=== PATIENT | female | born 1965 | race Hispanic/Latino ===

== ENCOUNTER 2018-10-13 01:29 | Inpatient (IN) | payer MEDICARE ==
[2018-10-13] VITALS (22 sets, daily range): BP systolic 127–190; BP diastolic 37–106
[~2018-10-13] VITALS: Ht 162.6 cm; Wt 130.6 kg
[~2018-10-13 01:29] MED LIST: AEC81 PO; ALBU8.5H8 IH; AMLO10TA7 PO; AZIT500T PO; BRIM5DRO OP; CETI10TA57 PO; FOLI1TAB15 PO; FURO20TA6 PO; GABA-531 PO; HYDR-4154 PO; LABE200T5 PO; LINA5TAB PO; LUBI24CA2 PO; MONT10TA24 PO; PRED20TA3 PO; SENN-183 PO; SIMV20TA6 PO; THEO100C PO; TRAV2.5D OD
[2018-10-13] MEDS ORDERED: METHYLPREDNISOLONE SOD SUCC 125MG/2ML VIAL ONE (02:41)
[2018-10-13] MEDS ORDERED: LEVOFLOXACIN 750 MG/D5W 150 ML 150 ML ONE (02:42)
[2018-10-13] MEDS ORDERED: IPRATROPIUM/ALBUTEROL SULFATE 3 ML SOLUTION IH ONE (03:20)
[2018-10-13] MEDS ORDERED: ASPIRIN 325 MG TABLET ONE (03:24)
[2018-10-13] MEDS ORDERED: NITROGLYCERIN 0.4 MG SL TAB SL ONE (03:25)
[2018-10-13 03:30] LABS: BASOPHILS % (AUTO) 0.5 % (0.0-5.0); EOSINOPHILS % (AUTO) 0.5 % (0.0-8.0); HEMATOCRIT 28.3 % (36-48); MEAN CORPUSCULAR HEMOGLOBIN 28.6 pg (27.0-33.0); MEAN CORPUSCULAR HGB CONC 31.8 g/dL (32.0-36.0); MEAN CORPUSCULAR VOLUME 89.9 fL (79-99); MONOCYTES % (AUTO) 1.9 % (3.0-13.0); NEUTROPHILS % (AUTO) 92.1 % (40.0-77.0); NUCLEATED RED BLOOD CELLS 0.1 % (0.0-0.19); PLATELET COUNT (AUTO) 146 K/uL (130-400); RED BLOOD CELL COUNT(AUTO) 3.15 MIL/uL (4.00-5.50); RED CELL DISTRIBUTION WIDTH 15.4 % (11.0-15.5); WHITE BLOOD COUNT (AUTO) 9.2 K/uL (4.8-10.8)
[2018-10-13 03:39] LABS: INR 0.92 (0.85-1.15); PARTIAL THROMBOPLASTIN TIME 32.4 SEC (26.3-35.5); PROTHROMBIN TIME 9.7 SEC (9.6-11.6)
[2018-10-13 03:48] LABS: ALBUMIN 2.9 g/dL (3.5-5.0); BILIRUBIN,TOTAL 0.3 mg/dL (0.2-1.0); CREATININE 3.8 mg/dL (0.5-1.5); TOTAL PROTEIN, SERUM 6.8 g/dL (6.0-8.3)
[2018-10-13 03:49] LABS: POTASSIUM 8.1 mmol/L (3.5-5.1)
[2018-10-13 03:54] LABS: B-TYPE NATRIURETIC PEPTIDE 262 pg/mL (0-100)
[2018-10-13 04:33] LABS: CREATININE 3.8 mg/dL (0.5-1.5)
[2018-10-13 04:38] LABS: POTASSIUM 8.5 mmol/L (3.5-5.1)
[2018-10-13] MEDS ORDERED: CALCIUM GLUCONATE 1 GM/10 ML VIAL IV ONE (04:46)
[2018-10-13] MEDS ORDERED: FUROSEMIDE 10 MG/ML 2ML VIAL ONE ×2 (04:46→10:24)
[2018-10-13] MEDS ORDERED: INSULIN HUMULIN R 100 UNIT/ML 3ML ONE ×2 (04:48→08:41)
[2018-10-13] MEDS ORDERED: SODIUM CHLORIDE 0.9% 100 ML IV ONE (04:49)
[2018-10-13] MEDS ORDERED: ALBUTEROL SULFATE 0.083% 2.5 MG/3 ML INH IH ONE ×2 (04:58→08:58)
[2018-10-13] MEDS ORDERED: MORPHINE SULFATE 4 MG/1ML SYG IV PRN (05:15)
[2018-10-13] MEDS ORDERED: VANCOMYCIN 1GM+NS 250ML 250 ML IV ONE ×2 (05:15→07:04)
[2018-10-13] MEDS ORDERED: BUMETANIDE 0.25 MG/ML 10 ML VIAL IV SCH (05:15)
[2018-10-13] MEDS ORDERED: HYDRALAZINE HCL 20 MG/ML VIAL IV PRN (05:15)
[2018-10-13 05:17] LABS: ABG BASE EXCESS -8.7 mmol/L (-2.0-3.0); ABG HCO3 17.5 mmol/L (21.0-28.0); ABG OXYGEN SATURATION 95.8 % (95.0-99.0); ABG PCO2 39 mmHg (32-45)
[2018-10-13] MEDS ORDERED: PHARMACY COMMUNICATION MISC SCH (05:45)
[2018-10-13] MEDS ORDERED: VANCOMYCIN PROTOCOL PER PHARMACY IV SCH (05:45)
[2018-10-13] MEDS: AZITHROMYCIN 500MG+NS 250ML 250 ML IV SCH (07:00)
[2018-10-13 07:14] LABS: CHOLESTEROL 170 mg/dL (<200); HDL CHOLESTEROL 51 mg/dL (35-85); LDL DIRECT 96 mg/dL (0-99); TRIGLYCERIDES 104 mg/dL (30-200)
[2018-10-13] MEDS: CEFTRIAXONE SODIUM 1 GM IVP SCH (07:15)
[2018-10-13] MEDS ORDERED: COMPOUND IV MISC 1 EACH IVSOLN MISC PRN (07:15)
[2018-10-13] MEDS ORDERED: SODIUM CHLORIDE 0.9% IV SCH (07:15)
[2018-10-13] MEDS ORDERED: BUMETANIDE IV SCH (07:15)
[2018-10-13] MEDS: INSULIN HUMULIN R 100 UNIT/ML 3ML SQ SCH ×4 (07:30→21:00)
[2018-10-13] MEDS ORDERED: SODIUM POLYSTYRENE SULFONATE 15 GM/60 ML ML ONE (07:33)
[2018-10-13] MEDS ORDERED: SODIUM BICARB 50MEQ 50ML VIAL ONE (08:40)
[2018-10-13] MEDS: METOPROLOL TARTRATE 25 MG TAB PO SCH ×2 (09:00→22:23)
[2018-10-13] MEDS: BENZONATATE 100 MG CAPSULE PO SCH ×3 (09:00→22:22)
--- NOTE | 2018-10-13 09:31 | NUR ---
Pt requested to be taken off bipap. Denies sob at this time. No resp distress noted. Placed on 2L NC. HR 92 RR 22 SpO2 96% on 2L NC. Lavonne POLK notified.
[2018-10-13] MEDS ORDERED: SODIUM CHLORIDE 3% FOR INHALATION 4 ML/AMP VIAL.NEB IH ONE ×3 (09:38→18:27)
[2018-10-13 10:27] LABS: CREATINE KINASE, TOTAL 280 U/L (21-232); MYOGLOBIN 251 ng/mL (10-92); TROPONIN I < 0.04 ng/mL (0.00-0.06)
[2018-10-13] MEDS ORDERED: FUROSEMIDE 10 MG/ML 2ML VIAL IV SCH (10:30)
[2018-10-13] MEDS ORDERED: CALCIUM GLUCONATE 1 GM/10 ML VIAL IV SCH (11:15)
[2018-10-13] MEDS ORDERED: SODIUM POLYSTYRENE SULFONATE 15 GM/60 ML ML PO PRN (11:15)
[2018-10-13] MEDS ORDERED: SODIUM BICARB 8.4% 50ML SYRING 200 MEQ in DEXTROSE 10%-WATER 1,000 ML IV SCH (11:15)
[2018-10-13] MEDS ORDERED: METOLAZONE 2.5 MG TABLET PO SCH (11:30)
[2018-10-13] MEDS: ALBUTEROL SULFATE 0.083% 2.5 MG/3 ML INH IH SCH ×6 (11:51→22:00)
[2018-10-13] MEDS: CALCIUM GLUCONATE 1 GM in SODIUM CHLORIDE 0.9% 50 ML IV SCH ×2 (12:13→12:15)
[2018-10-13] MEDS: DEXTROSE 10%-WATER 1,000 ML IV SCH (12:13)
[2018-10-13] MEDS: FUROSEMIDE 10 MG/ML 4ML VIAL IV SCH ×2 (12:13→22:52)
[2018-10-13] MEDS: HEPARIN SODIUM 5000UNIT/ML 1ML VIAL SQ SCH ×2 (12:14→22:56)
[2018-10-13] MEDS ORDERED: CALCIUM GLUCONATE 1 GM in SODIUM CHLORIDE 0.9% 50 ML IV PRN (12:15)
[2018-10-13] MEDS: INSULIN REGULAR, HUMAN 3ML 100 UNIT in SODIUM CHLORIDE 0.9% 99 ML IV SCH ×4 (12:16→18:30)
[2018-10-13] MEDS ORDERED: ZOSYN 3.375GM+NS 50ML 50 ML IV SCH (13:00)
--- NOTE | 2018-10-13 16:00 | NUR ---
REPORT GIVEN TO SOUMYA POLK. INFORMED OF PENDING WOUND PICTURE AND HOME MEDICATIONS.
[2018-10-13 16:06] LABS: CREATINE KINASE, TOTAL 219 U/L (21-232); MYOGLOBIN 279 ng/mL (10-92); TROPONIN I < 0.04 ng/mL (0.00-0.06)
[2018-10-13 17:35] LABS: APPEARANCE,URINE Clear (CLEAR); BILIRUBIN,URINE Negative (NEGATIVE); COLOR,URINE Yellow (YELLOW); GLUCOSE, URINE (UA) 250 mg/dL (NEGATIVE); KETONES,URINE Negative (NEGATIVE); LEUKOCYTE ESTERASE ,URINE Trace (NEGATIVE); NITRATE,URINE Negative (NEGATIVE); OCCULT BLOOD,URINE Moderate (NEGATIVE); PROTEIN,URINE 300 mg/dL (NEGATIVE); UROBILINOGEN,URINE 0.2 mg/dL (0.2-1.0)
[2018-10-13 17:39] LABS: CREATININE,URINE RANDOM 33 mg/dL (30-135)
[2018-10-13 17:48] LABS: PROTEIN,URINE RANDOM 242.2 mg/dL (0-11.9)
[2018-10-13 17:50] LABS: BACTERIA,URINE Rare /HPF (None Seen); MUCUS,URINE Few LPF (None Seen); RBC,URINE 51-100 /HPF (0-1)
[2018-10-13 17:51] LABS: SQUAMOUS EPITHELIAL CELL,UR 0-2 /HPF (0-2)
[2018-10-13] MEDS ORDERED: FURO20TA4 PO (18:51)
[2018-10-13] MEDS ORDERED: DOCU100C33 PO (18:51)
[2018-10-13] MEDS ORDERED: OLME40TA18 PO (18:51)
[2018-10-13] MEDS ORDERED: LUBI24CA2 PO (18:51)
[2018-10-13] MEDS ORDERED: LINA5TAB PO (18:51)
[2018-10-13] MEDS ORDERED: DEXL60CA3 PO (18:51)
[2018-10-13] MEDS ORDERED: INSLAN SQ ×2 (18:51)
[2018-10-13] MEDS ORDERED: AMLO5TAB9 PO (18:51)
[2018-10-13] MEDS ORDERED: GABA-533 PO (18:51)
--- NOTE | 2018-10-13 20:00 | NUR ---
ASSESSMENT AWAKE. RESTING IN BED. REMAINS ON INSULIN DRIP. DENIES PAIN. ASSESSMENT COMPLETED SEE FLOW SHEET. ENCOURAGED TO CALL FOR WANTS OR NEEDS. Addendum: 10/13/18 at 2037 by ELIZABETH PAYAN RN RN Amended: Links added.
[2018-10-13] MEDS: LATANOPROST 2.5 ML DROPS OD SCH (21:00)
[2018-10-13] MEDS: SIMVASTATIN 20 MG TABLET PO SCH (22:24)
[2018-10-13] MEDS: HYDRALAZINE HCL 25 MG TABLET PO SCH (22:24)
[2018-10-13] MEDS: LABETALOL HCL 200 MG TABLET PO SCH (22:25)
[2018-10-13] MEDS: TIMOLOL OP SCH (22:26)
[2018-10-13] MEDS: BRIMONIDINE TARTRATE OP SCH (22:26)
[2018-10-14] VITALS (15 sets, daily range): BP systolic 103–162; BP diastolic 41–80
[2018-10-14] MEDS: ALBUTEROL SULFATE 0.083% 2.5 MG/3 ML INH IH SCH ×4 (00:49→06:31)
[2018-10-14 04:03] LABS: MEAN CORPUSCULAR HEMOGLOBIN 28.8 pg (27.0-33.0); MEAN CORPUSCULAR HGB CONC 32.8 g/dL (32.0-36.0); MEAN CORPUSCULAR VOLUME 87.8 fL (79-99); PLATELET COUNT (AUTO) 180 K/uL (130-400); RED BLOOD CELL COUNT(AUTO) 2.96 MIL/uL (4.00-5.50); RED CELL DISTRIBUTION WIDTH 15.3 % (11.0-15.5); WHITE BLOOD COUNT (AUTO) 7.7 K/uL (4.8-10.8)
[2018-10-14 04:08] LABS: HEMOGLOBIN A1C 8.6 % (4.0-6.0)
[2018-10-14 04:18] LABS: INR 0.99 (0.85-1.15); LYMPHOCYTES % (MANUAL) 9 % (22-44); MAN.DIFF COMMENT-IMPRESSION MANUAL DIFFERENTIAL; MONOCYTES % (MANUAL) 7 % (2-9); PARTIAL THROMBOPLASTIN TIME 29.6 SEC (26.3-35.5); PROTHROMBIN TIME 10.4 SEC (9.6-11.6); SEGMENTED NEUTROPHILS % 84 % (40-70)
[2018-10-14 04:19] LABS: % IRON SATURATION 18.8 % (22-44)
[2018-10-14 04:20] LABS: PLATELET MORPHOLOGY COMMENT ADEQUATE
[2018-10-14 04:23] LABS: ABG BASE EXCESS -1.9 mmol/L (-2.0-3.0); ABG HCO3 25.1 mmol/L (21.0-28.0); ABG PCO2 51 mmHg (32-45)
[2018-10-14 04:26] LABS: ALBUMIN 2.7 g/dL (3.5-5.0); BILIRUBIN,TOTAL 0.3 mg/dL (0.2-1.0); CREATININE 3.7 mg/dL (0.5-1.5); MAGNESIUM 1.7 mg/dL (1.80-2.40); PHOSPHORUS 5.6 mg/dL (2.5-4.9); POTASSIUM 4.7 mmol/L (3.5-5.1); THYROID STIMULATING HORMONE 0.67 uIU/mL (0.36-3.74); TOTAL PROTEIN, SERUM 6.2 g/dL (6.0-8.3)
[2018-10-14] MEDS: DEXTROSE 10%-WATER 1,000 ML IV SCH (04:55)
[2018-10-14] MEDS: INSULIN HUMULIN R 100 UNIT/ML 3ML SQ SCH ×4 (06:00→21:46)
[2018-10-14] MEDS: AZITHROMYCIN 500MG+NS 250ML 250 ML IV SCH (07:01)
[2018-10-14] MEDS: CEFTRIAXONE SODIUM 1 GM IVP SCH (07:01)
[2018-10-14] MEDS ORDERED: ALBUTEROL SULFATE 0.083% 2.5 MG/3 ML INH IH PRN (08:00)
[2018-10-14] MEDS: MONTELUKAST SODIUM 10 MG TAB PO SCH (08:32)
[2018-10-14] MEDS: THEOPHYLLINE ANHYDROUS 100 MG CAP.ER.24H PO SCH (08:32)
[2018-10-14] MEDS: METOPROLOL TARTRATE 25 MG TAB PO SCH (08:32)
[2018-10-14] MEDS: HYDRALAZINE HCL 25 MG TABLET PO SCH ×2 (08:33→20:48)
[2018-10-14] MEDS: SENNOSIDES 8.6 MG TABLET PO SCH (08:33)
[2018-10-14] MEDS: FOLIC ACID 1 MG TABLET PO SCH (08:33)
[2018-10-14] MEDS: BENZONATATE 100 MG CAPSULE PO SCH ×3 (08:33→20:42)
[2018-10-14] MEDS: LABETALOL HCL 200 MG TABLET PO SCH ×2 (08:34→20:42)
[2018-10-14] MEDS: ASPIRIN 81 MG EC TAB PO SCH (08:34)
[2018-10-14] MEDS: CETIRIZINE HCL 5 MG TABLET PO SCH (08:34)
[2018-10-14] MEDS: AMLODIPINE BESYLATE 5 MG TAB PO SCH (08:34)
[2018-10-14] MEDS: INSULIN GLARGINE 100 UNITS/ML 10 ML VIAL SQ SCH ×2 (08:38→21:47)
[2018-10-14] MEDS: TIMOLOL OP SCH ×2 (10:01→20:48)
[2018-10-14] MEDS: BRIMONIDINE TARTRATE OP SCH ×2 (10:01→20:48)
[2018-10-14] MEDS: FUROSEMIDE 10 MG/ML 4ML VIAL IV SCH ×2 (10:03→20:42)
[2018-10-14] MEDS: HEPARIN SODIUM 5000UNIT/ML 1ML VIAL SQ SCH ×2 (10:38→21:48)
[2018-10-14] MEDS ORDERED: ASPIRIN 325 MG TABLET ONE (11:26)
[2018-10-14] MEDS ORDERED: EPOETIN ALFA 10,000 UNIT/ML VIAL SQ SCH (12:15)
[2018-10-14] MEDS ORDERED: COMPOUND IV MISC 1 EACH IVSOLN MISC PRN (12:30)
--- NOTE | 2018-10-14 13:05 | NUR ---
DC PLAN VISITED WITH PATIENT. PATIENT LIVES WITH SON. WHEEL CHAIR AND CANE AT HOME PROVIDER 4 HRS A DAY. [facility] [place] [facility]JECTION DAILY. FEELS SAFE TO RETURN HOME. Addendum: 10/14/18 at 1306 by DEBBIE GAGE RN CM Amended: Links added.
--- NOTE | 2018-10-14 13:30 | NUR ---
ARRIVAL TO ROOM 202 REPORT RECEIVED FROM JAIRO POLK. PT IS AAOX4 DENIES CP DENIES SOB DENIES NV NO COMPLAINTS. TELE PACK IS ON PATIENT. FAMILY AT BEDSIDE.
[2018-10-14] MEDS ORDERED: LACTULOSE 20 GM/30 ML UDCUP PO SCH (14:15)
--- NOTE | 2018-10-14 15:03 | NUR ---
RD Notification Pt admitted for CHF Distress. Pt with DM, CHF, acute renal labs. RD notified for diet education for severe hyperkalemia. RD provided high potassium foods diet education. Pt verbalized understanding. Pt tolerating current 75gm, Dialysis diet with 1500mL Fluid restriction. Pt monitored labs: K 4.7, Glu 179, Alb 2.7, BUN 67, Cr 3.7, GFR 14, A1C 8.6, Ca 8.0, P 5.6, Mg 1.70. RD to continue to monitor. Please notify RD as additional nutrition concerns arise. Thank you. Addendum: 10/14/18 at [address] RD Amended: Links added.
--- NOTE | 2018-10-14 15:07 | NUR ---
Diet Education RD provided Potassium content of foods diet education. FORREST reviewed potassium content of foods as pertains to Pt's at home diet. Pt with several questions. RD answered all questions. Pt verbalized understanding. FORREST provided reference materials and handouts. FORREST encouraged Pt to notify as questions or concerns arise. Addendum: 10/14/18 at [address] RD Amended: Links added.
--- NOTE | 2018-10-14 17:50 | NUR ---
STATUS AMBULATED UP TO RESTROOM WITH ASSIST, BACK TO BED. RESTING IN BED, NO COMPLAINTS. CALL LIGHT WITHIN REACH.
--- NOTE | 2018-10-14 20:30 | NUR ---
PER PATIENT'S REQUEST, USED HER OWN EYE DROPS.
[2018-10-14] MEDS: SIMVASTATIN 20 MG TABLET PO SCH (20:41)
[2018-10-14] MEDS: LATANOPROST 2.5 ML DROPS OD SCH (20:48)
[2018-10-15 04:09] LABS: CREATININE 3.6 mg/dL (0.5-1.5); POTASSIUM 4.1 mmol/L (3.5-5.1)
[2018-10-15 04:20] VITALS: BP 136/45
[2018-10-15] MEDS: CEFTRIAXONE SODIUM 1 GM IVP SCH (06:02)
[2018-10-15] MEDS: INSULIN HUMULIN R 100 UNIT/ML 3ML SQ SCH (06:02)
[2018-10-15] MEDS: AZITHROMYCIN 500MG+NS 250ML 250 ML IV SCH (06:57)
[2018-10-15] MEDS: INSULIN GLARGINE 100 UNITS/ML 10 ML VIAL SQ SCH (07:24)
[2018-10-15] MEDS: ASPIRIN 81 MG EC TAB PO SCH (07:27)
[2018-10-15] MEDS: SENNOSIDES 8.6 MG TABLET PO SCH (07:27)
[2018-10-15] MEDS: LABETALOL HCL 200 MG TABLET PO SCH (07:27)
[2018-10-15] MEDS: FOLIC ACID 1 MG TABLET PO SCH (07:27)
[2018-10-15] MEDS: BENZONATATE 100 MG CAPSULE PO SCH (07:27)
[2018-10-15] MEDS: MONTELUKAST SODIUM 10 MG TAB PO SCH (07:28)
[2018-10-15] MEDS: HYDRALAZINE HCL 25 MG TABLET PO SCH (07:28)
[2018-10-15] MEDS: AMLODIPINE BESYLATE 5 MG TAB PO SCH (07:28)
[2018-10-15] MEDS: CETIRIZINE HCL 5 MG TABLET PO SCH (07:28)
[2018-10-15] MEDS: BRIMONIDINE TARTRATE OP SCH (07:29)
[2018-10-15] MEDS: TIMOLOL OP SCH (07:29)
[2018-10-15 07:54] VITALS: BP 156/74
[2018-10-15] MEDS: THEOPHYLLINE ANHYDROUS 100 MG CAP.ER.24H PO SCH (07:59)
--- NOTE | 2018-10-15 08:00 | NUR ---
ASSESSMENT PT IS AAOX4 RESTING IN BED. DENIES CP DENIES SOB DENIES NV NO COMPLAINTS. BREATHING PATTERN IS EVEN AND UNLABORED. CALL LIGHT WITHIN REACH. ASSISTED UP TO RESTROOM, BACK TO BEDSIDE, EATING BREAKFAST.
[2018-10-15] MEDS ORDERED: IRON SUCROSE COMPLEX 100 MG in SODIUM CHLORIDE 0.9% 50 ML IV SCH (09:00)
[2018-10-15] MEDS: FUROSEMIDE 10 MG/ML 4ML VIAL IV SCH (10:06)
[2018-10-15] MEDS ORDERED: AMLO10TA7 PO (10:29)
[2018-10-15] MEDS ORDERED: FURO40TA7 PO (10:29)
--- NOTE | 2018-10-15 10:30 | NUR ---
MD ROUNDS OK TO DC HOME
--- NOTE | 2018-10-15 11:00 | NUR ---
DISCHARGE PATIENT AND FAMILY VERBALIZE DC INSTRUCTIONS UNDERSTANDING. AGREE TO TAKE ALL MEDS ORDERED, AGREE TO FOLLOW UP WITH MDS ORDERED. ALL QUESTIONS ANSWERED, PIV REMOVED CATH TIP INTACT. TELE PACK REMOVED. DOWN VIA WC TO VEHICLE WITH NURSE AID AND FAMILY.
== END 2018-10-15 11:10 | disposition home or self-care (01) | DRG 682 ==
LOC: EDH 01:29 → EDHIP 05:03 → 2BH 11:04 → 2CH 15:24 → 2AH 10-14 12:54
PROVIDERS: ADMIT Hospitalist; ATTEND Hospitalist
PROC: 5A09357 Assistance with Respiratory Ventilation, Less than 24 Consecutive Hours, Continuous Positive Airway Pressure (ICD-10-PCS; principal; 2018-10-13)
DX: N17.9 Acute kidney failure, unspecified (principal); I50.33 Acute on chronic diastolic (congestive) heart failure; J96.10 Chronic respiratory failure, unspecified whether with hypoxia or hypercapnia; E66.2 Morbid (severe) obesity with alveolar hypoventilation; E87.2 Acidosis; I13.2 Hypertensive heart and chronic kidney disease with heart failure and with stage 5 chronic kidney disease, or end stage renal disease; Z68.42 Body mass index [BMI] 45.0-49.9, adult; N18.4 Chronic kidney disease, stage 4 (severe); N18.5 Chronic kidney disease, stage 5; E87.5 Hyperkalemia; J44.9 Chronic obstructive pulmonary disease, unspecified; D63.8 Anemia in other chronic diseases classified elsewhere; E11.22 Type 2 diabetes mellitus with diabetic chronic kidney disease; E11.65 Type 2 diabetes mellitus with hyperglycemia; E78.00 Pure hypercholesterolemia, unspecified; E78.5 Hyperlipidemia, unspecified; G47.33 Obstructive sleep apnea (adult) (pediatric); E66.9 Obesity, unspecified; R73.9 Hyperglycemia, unspecified; H40.9 Unspecified glaucoma; I25.10 Atherosclerotic heart disease of native coronary artery without angina pectoris; Z82.49 Family history of ischemic heart disease and other diseases of the circulatory system; Z82.5 Family history of asthma and other chronic lower respiratory diseases; Z83.3 Family history of diabetes mellitus; Z87.01 Personal history of pneumonia (recurrent); Z90.49 Acquired absence of other specified parts of digestive tract
CPT/HCPCS: 36415; 36600; 71045; 71046; 76770; 80048; 80053; 80061; 81001; 82550; 82570; 82803; 82948; 83036; 83540; 83550; 83605; 83735; 83874; 83880; 84100; 84132; 84156; 84443; 84484; 85025; 85610; 85730; 93005; 93306; 94640; 94660; 94664; 97039; G0378; J0360; J0456; J0610; J0696; J0885; J1644; J1756; J1815; J1940; J1956; J2930; J3370; J3490

== ENCOUNTER 2018-12-02 00:16 | Inpatient (IN) | payer MEDICARE ==
[~2018-12-02] VITALS: Ht 162.6 cm; Wt 131.1 kg
[~2018-12-02 00:16] MED LIST changes: -ALBU8.5H8 IH; -AZIT500T PO; +DEXL60CA3 PO; +DOCU100C33 PO; -FURO20TA6 PO; +FURO40TA7 PO; -GABA-531 PO; +GABA-533 PO; +INSLAN SQ; -PRED20TA3 PO
[2018-12-02 01:02] LABS: CREATININE 3.5 mg/dL (0.5-1.5); POTASSIUM 4.3 mmol/L (3.5-5.1)
[2018-12-02 01:04] LABS: BASOPHILS % (AUTO) 0.5 % (0.0-5.0); EOSINOPHILS % (AUTO) 0.1 % (0.0-8.0); HEMATOCRIT 23.6 % (36-48); LYMPHOCYTES % (AUTO) 3.8 % (21.0-51.0); MEAN CORPUSCULAR HEMOGLOBIN 27.8 pg (27.0-33.0); MEAN CORPUSCULAR HGB CONC 31.9 g/dL (32.0-36.0); MEAN CORPUSCULAR VOLUME 87.1 fL (79-99); MONOCYTES % (AUTO) 3.9 % (3.0-13.0); NEUTROPHILS % (AUTO) 91.7 % (40.0-77.0); PLATELET COUNT (AUTO) 172 K/uL (130-400); RED BLOOD CELL COUNT(AUTO) 2.71 MIL/uL (4.00-5.50); RED CELL DISTRIBUTION WIDTH 17.2 % (11.0-15.5); WHITE BLOOD COUNT (AUTO) 9.4 K/uL (4.8-10.8)
[2018-12-02 01:08] LABS: ALBUMIN 3.1 g/dL (3.5-5.0); BILIRUBIN,TOTAL 0.3 mg/dL (0.2-1.0); TOTAL PROTEIN, SERUM 6.8 g/dL (6.0-8.3)
[2018-12-02 01:16] LABS: INR 0.97 (0.85-1.15); PARTIAL THROMBOPLASTIN TIME 29.4 SEC (26.3-35.5); PROTHROMBIN TIME 10.2 SEC (9.6-11.6)
[2018-12-02 01:23] LABS: B-TYPE NATRIURETIC PEPTIDE 506 pg/mL (0-100)
[2018-12-02] MEDS ORDERED: ENOXAPARIN SODIUM 100 MG/1 ML SQ ONE ×2 (02:52→02:54)
[2018-12-02] MEDS ORDERED: SODIUM CHLORIDE 0.9% 1000ML 1,000 ML IV SCH (03:30)
[2018-12-02] MEDS ORDERED: FUROSEMIDE 10 MG/ML 2ML VIAL ONE (05:13)
[2018-12-02] MEDS ORDERED: NITROGLYCERIN 1GM/1 INCH PACKET TD PRN (05:15)
[2018-12-02] MEDS ORDERED: HYDRALAZINE HCL 20 MG/ML VIAL IV PRN (05:15)
[2018-12-02] MEDS ORDERED: FUROSEMIDE 10 MG/ML 2ML VIAL IV SCH (06:00)
[2018-12-02] MEDS: HEPARIN SODIUM 5000UNIT/ML 1ML VIAL SQ SCH ×3 (06:00→22:49)
[2018-12-02 06:22] LABS: BASOPHILS % (AUTO) 0.2 % (0.0-5.0); LYMPHOCYTES % (AUTO) 4.6 % (21.0-51.0); MEAN CORPUSCULAR HEMOGLOBIN 27.4 pg (27.0-33.0); MEAN CORPUSCULAR HGB CONC 31.3 g/dL (32.0-36.0); MEAN CORPUSCULAR VOLUME 87.5 fL (79-99); MONOCYTES % (AUTO) 2.6 % (3.0-13.0); NEUTROPHILS % (AUTO) 92.6 % (40.0-77.0); PLATELET COUNT (AUTO) 175 K/uL (130-400); RED BLOOD CELL COUNT(AUTO) 2.75 MIL/uL (4.00-5.50); RED CELL DISTRIBUTION WIDTH 17.8 % (11.0-15.5); WHITE BLOOD COUNT (AUTO) 9.7 K/uL (4.8-10.8)
[2018-12-02 06:41] LABS: BILIRUBIN,TOTAL 0.3 mg/dL (0.2-1.0); CREATININE 3.5 mg/dL (0.5-1.5); POTASSIUM 4.9 mmol/L (3.5-5.1); TOTAL PROTEIN, SERUM 6.8 g/dL (6.0-8.3)
[2018-12-02] MEDS: INSULIN HUMULIN R 100 UNIT/ML 3ML SQ SCH ×4 (07:30→22:50)
[2018-12-02 08:18] LABS: APPEARANCE,URINE CLEAR (CLEAR); BILIRUBIN,URINE NEGATIVE (NEGATIVE); COLOR,URINE YELLOW (YELLOW); GLUCOSE, URINE (UA) NEGATIVE (NEGATIVE); KETONES,URINE NEGATIVE (NEGATIVE); LEUKOCYTE ESTERASE ,URINE NEGATIVE (NEGATIVE); NITRATE,URINE NEGATIVE (NEGATIVE); OCCULT BLOOD,URINE NEGATIVE (NEGATIVE); PH,URINE 5.5 (5.0-8.0); PROTEIN,URINE 100 mg/dL (NEGATIVE); UROBILINOGEN,URINE 0.2 mg/dL (0.2-1.0)
[2018-12-02 08:36] LABS: BACTERIA,URINE Rare /HPF (None Seen); RBC,URINE 0-1 /HPF (0-1); SQUAMOUS EPITHELIAL CELL,UR Rare /HPF (0-2); WBC,URINE 0-1 /HPF (0-1)
[2018-12-02] MEDS ORDERED: AMOX1TAB15 PO (08:50)
[2018-12-02] MEDS ORDERED: PRED20TA3 PO (08:50)
[2018-12-02] MEDS: FAMOTIDINE/PF 20 MG/2 ML VIAL IV SCH (09:00)
[2018-12-02] MEDS ORDERED: FAMOTIDINE/PF 20 MG/2 ML VIAL IV SCH (09:00)
[2018-12-02] MEDS ORDERED: INSULIN HUMULIN R 100 UNIT/ML 3ML ONE ×2 (10:33→12:36)
[2018-12-02] MEDS ORDERED: EPOETIN ALFA 10,000 UNIT/ML VIAL SQ SCH (10:45)
--- NOTE | 2018-12-02 10:45 | NUR ---
YANE Castro met with pt who states she lives in an apt with her 21yro son. Daughter Tanika Wagoner [phone] is provider thru [facility] in [place] for 29.5hrs a wk and pt has [facility] for HH services. Pt has power chair, walker, shower chair, home O2 thru [facility], nebulizer and CPAP. Pt also attends [facility] in [place] and they transport to [place] appts as needed. DC Plan is home with current services. Addendum: 12/02/18 at 1057 by ELEANOR THORNE Amended: Links added.
[2018-12-02] MEDS ORDERED: FAMOTIDINE/PF 20 MG/2 ML VIAL IV ONE (12:34)
[2018-12-02] MEDS ORDERED: HEPARIN SODIUM 5000UNIT/ML 1ML VIAL ONE (12:34)
[2018-12-02 13:00] VITALS: BP 147/79
--- NOTE | 2018-12-02 14:20 | NUR ---
PT IN ROOM IN NO DISTRESS AAOX3. IV INTACT, NO BLEEDING. NO SOB AT THIS MOMENT.
[2018-12-02 16:00] VITALS: BP 142/70
[2018-12-02] MEDS: FUROSEMIDE 10 MG/ML 2ML VIAL IV SCH (17:44)
[2018-12-02 20:00] VITALS: BP 150/64
[2018-12-03] VITALS: BP 135/57
[2018-12-03 04:00] VITALS: BP 144/70
[2018-12-03 05:03] LABS: HEMATOCRIT 23.8 % (36-48); MEAN CORPUSCULAR HEMOGLOBIN 27.4 pg (27.0-33.0); MEAN CORPUSCULAR HGB CONC 32.2 g/dL (32.0-36.0); MEAN CORPUSCULAR VOLUME 85.3 fL (79-99); PLATELET COUNT (AUTO) 186 K/uL (130-400); RED BLOOD CELL COUNT(AUTO) 2.79 MIL/uL (4.00-5.50); WHITE BLOOD COUNT (AUTO) 6.2 K/uL (4.8-10.8)
[2018-12-03 05:14] LABS: BAND NEUTROPHILS % (MANUAL) 2 % (0-2); EOSINOPHILS % (MANUAL) 4 % (1-6); LYMPHOCYTES % (MANUAL) 24 % (22-44); MAN.DIFF COMMENT-IMPRESSION MANUAL DIFFERENTIAL; MONOCYTES % (MANUAL) 10 % (2-9); PLATELET MORPHOLOGY COMMENT ADEQUATE; SEGMENTED NEUTROPHILS % 60 % (40-70)
[2018-12-03 05:17] LABS: CREATININE 3.2 mg/dL (0.5-1.5); POTASSIUM 3.7 mmol/L (3.5-5.1)
[2018-12-03 05:20] LABS: B-TYPE NATRIURETIC PEPTIDE 840 pg/mL (0-100)
[2018-12-03] MEDS: INSULIN HUMULIN R 100 UNIT/ML 3ML SQ SCH ×4 (06:13→21:00)
[2018-12-03] MEDS: FUROSEMIDE 10 MG/ML 2ML VIAL IV SCH ×2 (06:17→17:30)
[2018-12-03] MEDS: HEPARIN SODIUM 5000UNIT/ML 1ML VIAL SQ SCH ×3 (06:24→22:15)
[2018-12-03 08:00] VITALS: BP 148/81
[2018-12-03] MEDS: FOLIC ACID 1 MG TABLET PO SCH (10:20)
[2018-12-03] MEDS: HYDRALAZINE HCL 25 MG TABLET PO SCH ×3 (10:20→21:16)
[2018-12-03] MEDS: DOCUSATE SODIUM 100 MG CAP PO SCH ×3 (10:20→21:17)
[2018-12-03] MEDS: LABETALOL HCL 200 MG TABLET PO SCH ×2 (10:21→21:17)
[2018-12-03] MEDS: AMLODIPINE BESYLATE 5 MG TAB PO SCH (10:21)
[2018-12-03] MEDS: ASPIRIN 81 MG EC TAB PO SCH (10:21)
[2018-12-03] MEDS: THEOPHYLLINE ANHYDROUS 100 MG CAP.ER.24H PO SCH (10:21)
[2018-12-03] MEDS: MONTELUKAST SODIUM 10 MG TAB PO SCH (10:21)
[2018-12-03] MEDS: FAMOTIDINE/PF 20 MG/2 ML VIAL IV SCH (10:21)
[2018-12-03] MEDS: INSULIN GLARGINE 100 UNITS/ML 10 ML VIAL SQ SCH (10:29)
[2018-12-03 11:00] VITALS: BP 157/77
[2018-12-03] MEDS: IRON SUCROSE COMPLEX 100 MG in SODIUM CHLORIDE 0.9% 50 ML IV SCH (14:20)
[2018-12-03 16:00] VITALS: BP 125/67
--- NOTE | 2018-12-03 16:59 | NUR ---
RD NOTIFICATION Pt tolerating Renal Non Dialysis diet with no report of GI distress. Pt although states awful smell to food. Recommend 75gm CC, Kaufman diet. Recommend 30mL ProMod TID. RD to continue to monitor. Pt LBM 11/30/18. Pt monitored labs: BUN 72, Cr 3.2, GFR 16, Glu 187, Ca 8.2, BNP 840, Alb 3.0, Hgb 7.7, Hct 23.8. Pt previously received renal dialysis diet education and demonstrated knowledge retention of dietary recommendations. Addendum: 12/03/18 at [address] RD Amended: Links added.
[2018-12-03] MEDS ORDERED: LUBIPROSTONE 24 MCG CAP PO SCH (18:10)
[2018-12-03 20:00] VITALS: BP 134/63
[2018-12-03] MEDS: LUBIPROSTONE 24 MCG CAP PO SCH (21:00)
[2018-12-03] MEDS ORDERED: SIMVASTATIN 20 MG TABLET PO SCH (21:00)
[2018-12-03] MEDS ORDERED: INSULIN GLARGINE 100 UNITS/ML 10 ML VIAL SQ SCH (21:00)
[2018-12-03] MEDS ORDERED: GABAPENTIN 100 MG CAPSULE PO SCH (21:00)
[2018-12-03] MEDS ORDERED: LATANOPROST 2.5 ML DROPS OD SCH (21:00)
[2018-12-03] MEDS ORDERED: ACETAMINOPHEN 325 MG TAB ONE (21:36)
[2018-12-03] MEDS ORDERED: ACETAMINOPHEN 325 MG TAB PO PRN (21:45)
[2018-12-04] VITALS: BP 129/53
[2018-12-04 04:00] VITALS: BP 124/56
[2018-12-04 05:50] LABS: HEMATOCRIT 23.9 % (36-48); MEAN CORPUSCULAR HEMOGLOBIN 27.9 pg (27.0-33.0); MEAN CORPUSCULAR HGB CONC 32.5 g/dL (32.0-36.0); MEAN CORPUSCULAR VOLUME 85.8 fL (79-99); NUCLEATED RED BLOOD CELLS 0.1 % (0.0-0.19); PLATELET COUNT (AUTO) 196 K/uL (130-400); RED BLOOD CELL COUNT(AUTO) 2.79 MIL/uL (4.00-5.50); RED CELL DISTRIBUTION WIDTH 17.1 % (11.0-15.5); WHITE BLOOD COUNT (AUTO) 8.9 K/uL (4.8-10.8)
[2018-12-04 06:03] LABS: PHOSPHORUS 4.1 mg/dL (2.5-4.9); POTASSIUM 3.4 mmol/L (3.5-5.1)
[2018-12-04 06:22] LABS: BAND NEUTROPHILS % (MANUAL) 1 % (0-2); BASOPHILS % (MANUAL) 1 % (0-2); EOSINOPHILS % (MANUAL) 1 % (1-6); LYMPHOCYTES % (MANUAL) 13 % (22-44); MAN.DIFF COMMENT-IMPRESSION MANUAL DIFFERENTIAL; MONOCYTES % (MANUAL) 3 % (2-9); PLATELET MORPHOLOGY COMMENT ADEQUATE; REACTIVE LYMPHOCYTES 1 % (0-0); SEGMENTED NEUTROPHILS % 80 % (40-70)
[2018-12-04] MEDS: INSULIN HUMULIN R 100 UNIT/ML 3ML SQ SCH (06:41)
[2018-12-04] MEDS: INSULIN GLARGINE 100 UNITS/ML 10 ML VIAL SQ SCH (07:02)
[2018-12-04] MEDS: FUROSEMIDE 10 MG/ML 2ML VIAL IV SCH ×2 (07:45→16:29)
[2018-12-04] MEDS: HEPARIN SODIUM 5000UNIT/ML 1ML VIAL SQ SCH ×2 (07:50→15:49)
[2018-12-04 07:52] VITALS: BP 134/66
[2018-12-04] MEDS: LUBIPROSTONE 24 MCG CAP PO SCH (09:00)
[2018-12-04] MEDS: LABETALOL HCL 200 MG TABLET PO SCH (10:49)
[2018-12-04] MEDS: HYDRALAZINE HCL 25 MG TABLET PO SCH ×2 (10:49→14:59)
[2018-12-04] MEDS: DOCUSATE SODIUM 100 MG CAP PO SCH ×2 (10:49→14:58)
[2018-12-04] MEDS: THEOPHYLLINE ANHYDROUS 100 MG CAP.ER.24H PO SCH (10:50)
[2018-12-04] MEDS: MONTELUKAST SODIUM 10 MG TAB PO SCH (10:50)
[2018-12-04] MEDS: ASPIRIN 81 MG EC TAB PO SCH (10:50)
[2018-12-04] MEDS: AMLODIPINE BESYLATE 5 MG TAB PO SCH (10:50)
[2018-12-04] MEDS: FAMOTIDINE/PF 20 MG/2 ML VIAL IV SCH (10:50)
[2018-12-04] MEDS: FOLIC ACID 1 MG TABLET PO SCH (10:52)
[2018-12-04] MEDS: INSULIN LISPRO 100 UNIT/ML 3ML SQ SCH ×4 (11:30→16:28)
[2018-12-04 11:35] VITALS: BP 178/72
[2018-12-04] MEDS ORDERED: COMPOUND IV MISC 1 EACH IVSOLN MISC PRN (12:00)
[2018-12-04] MEDS: IRON SUCROSE COMPLEX 100 MG in SODIUM CHLORIDE 0.9% 50 ML IV SCH (14:59)
[2018-12-04 15:56] VITALS: BP 134/59
[2018-12-04] MEDS ORDERED: INSLAN SQ (17:53)
[2018-12-04] MEDS ORDERED: INSULIN GLARGINE 100 UNITS/ML 10 ML VIAL SQ SCH (21:00)
== END 2018-12-04 18:58 | disposition home or self-care (01) | DRG 291 ==
LOC: EDH 00:16 → EDHIP 03:18 → 4CH 12:57
PROVIDERS: ADMIT Family Medicine; ATTEND Family Medicine
DX: I13.0 Hypertensive heart and chronic kidney disease with heart failure and stage 1 through stage 4 chronic kidney disease, or unspecified chronic kidney disease (principal); I50.31 Acute diastolic (congestive) heart failure; Z68.43 Body mass index [BMI] 50.0-59.9, adult; N17.9 Acute kidney failure, unspecified; N18.9 Chronic kidney disease, unspecified; E66.01 Morbid (severe) obesity due to excess calories; D64.9 Anemia, unspecified; E11.21 Type 2 diabetes mellitus with diabetic nephropathy; E11.22 Type 2 diabetes mellitus with diabetic chronic kidney disease; E11.610 Type 2 diabetes mellitus with diabetic neuropathic arthropathy; E78.00 Pure hypercholesterolemia, unspecified; I49.3 Ventricular premature depolarization; K59.00 Constipation, unspecified; Z99.81 Dependence on supplemental oxygen; Z83.3 Family history of diabetes mellitus; Z82.5 Family history of asthma and other chronic lower respiratory diseases; Z82.49 Family history of ischemic heart disease and other diseases of the circulatory system
CPT/HCPCS: 36415; 71045; 78580; 80048; 80053; 81001; 82550; 82948; 83605; 83880; 84100; 84484; 85025; 85378; 85610; 85730; 87040; 87804; 93005; 93970; 99291; A9540; G0378; J0885; J1644; J1650; J1756; J1815; J1940; J3490